=== PATIENT | female | born 1940 | race Caucasian/White ===

== ENCOUNTER → 2016-03-30 | Outpatient (CLI) | payer MEDICARE, OTHER ==
[2016-03-30 14:20] LABS: BASOPHILS % (AUTO) 1 % (0-2); EOSINOPHILS # (AUTO) 0.4 10^3uL; EOSINOPHILS % (AUTO) 7 % (0-4); LYMPHOCYTES # (AUTO) 1.3 X10^3; MEAN CORPUSCULAR VOLUME 92 FL (80-100); MEAN PLATELET VOLUME 11.1 FL (6.0-9.5); MONOCYTES # (AUTO) 0.7 X10^3; MONOCYTES % (AUTO) 11 % (3-11); NEUTROPHILS # (AUTO) 3.3 X10^3; NEUTROPHILS % (AUTO) 57 % (51-67); PLATELET COUNT 191 10^3uL (150-450); WHITE BLOOD COUNT 5.74 10^3uL (4.0-11.0)
[2016-03-30 14:20] LABS: BILIRUBIN,URINE Negative (Negative); CLARITY,URINE Clear; COLOR,URINE Yellow; GLUCOSE, URINE (UA) Negative (Negative); LEUKOCYTE ESTERASE ,URINE Trace (Negative); UROBILINOGEN,URINE 0.2 mg/dL (0.2-1.0)
[2016-03-30 14:22] LABS: MEAN CORPUSCULAR HEMOGLOBIN 31.3 PG (26.0-34.0)
[2016-03-30 14:31] LABS: RBC,URINE 0-2 /HPF; URINE CENTRIFUGED VOLUME 12 mL
[2016-03-30 14:45] LABS: ALBUMIN 4.5 g/dL (3.4-5.0); ANION GAP 15.6 MEQ/L (3-15); TOTAL PROTEIN 8.2 g/dL (6.4-8.5)
--- NOTE | 2016-03-30 15:01 | Diagnostic Imaging Report ---
INDICATION: Annual physical exam, dyspnea. COMPARISON STUDY: Chest from March 25, 2015. FINDINGS: Frontal and lateral views of the chest demonstrate some flattening of the hemidiaphragms. Heart size and vascularity are normal. Mild interstitial changes are present in the lung bases, left greater than right. IMPRESSION: Stable COPD. Dictated by: Dictated on workstation # [id number]
== END ==
LOC: LAB 14:02
PROVIDERS: ATTEND Family Medicine
DX: I49.8 Other specified cardiac arrhythmias (principal); R06.00 Dyspnea, unspecified; R79.89 Other specified abnormal findings of blood chemistry; E78.2 Mixed hyperlipidemia; D50.8 Other iron deficiency anemias; N39.0 Urinary tract infection, site not specified; R82.99 Other abnormal findings in urine; G72.0 Drug-induced myopathy; K71.2 Toxic liver disease with acute hepatitis; E13.65 Other specified diabetes mellitus with hyperglycemia; E03.4 Atrophy of thyroid (acquired); M81.0 Age-related osteoporosis without current pathological fracture; J44.9 Chronic obstructive pulmonary disease, unspecified
CPT/HCPCS: 36415; 71020; 80053; 80061; 81003; 81015; 82306; 82550; 82977; 83036; 84436; 84443; 85025; 87088; 87147; 93005